=== PATIENT | male | born 1950 | race Caucasian/White ===

== ENCOUNTER 2018-09-24 06:53 | Emergency (ER) | payer MEDICARE, BC ==
[2018-09-24] MEDS ORDERED: Bacitracin Oint 1 GM U/D Packet TOP ONE (07:28)
[2018-09-24] MEDS ORDERED: Doxycycline 100 MG Cap PO ONE (07:28)
--- NOTE | 2018-09-24 07:32 | EDM.PDOC ---
ED HPI GENERAL MEDICAL PROBLEM - General Chief Complaint: Bite:Animal, Insect Stated Complaint: DEER TICK STUCK Time Seen by Provider: 09/24/18 07:15 Source of Information: Reports: Patient History Limitations: Reports: No Limitations - History of Present Illness INITIAL COMMENTS - FREE TEXT/NARRATIVE: 68-year-old male with a deer tick embedded into his left neck overnight. They were afraid to move it so he came in. No symptoms. Associated Symptoms: Reports: No Other Symptoms - Related Data Allergies Allergy/AdvReac Type Severity Reaction Status Date / Time levofloxacin Allergy Swelling Verified 09/24/18 07:08 Home Meds: Home Meds NK [No Known Home Meds] 09/24/18 [History] Past Medical History HEENT History: Reports: Impaired Vision Musculoskeletal History: Reports: Fracture - Infectious Disease History Infectious Disease History: Reports: Chicken Pox, Measles, Mumps, Shingles - Past Surgical History GI Surgical History: Reports: Appendectomy Social & Family History - Tobacco Use Smoking Status *Q: Never Smoker - Caffeine Use Caffeine Use: Reports: Coffee - Recreational Drug Use Recreational Drug Use: No ED ROS GENERAL - Review of Systems Review Of Systems: See Below Constitutional: Reports: No Symptoms Respiratory: Reports: No Symptoms GI/Abdominal: Reports: No Symptoms Neurological: Denies: Headache ED EXAM, ANIMAL BITE - Physical Exam Exam: See Below Exam Limited By: No Limitations General Appearance: Alert, No Apparent Distress Neck: Other (A very small black tick is embedded in the left anterior neck, no inflammatory reaction) Respiratory/Chest: No Respiratory Distress Course - Vital Signs Last Recorded V/S: Last Vital Signs Temp 97.5 F 09/24/18 07:14 Pulse 65 09/24/18 07:14 Resp 18 09/24/18 07:14 BP 139/92 H 09/24/18 07:14 Pulse Ox 96 09/24/18 07:14 - Orders/Labs/Meds Meds: Medications Discontinued Medications Generic Name Dose Route Start Last Admin Trade Name Freq PRN Reason Stop Dose Admin Bacitracin 1 dose 09/24/18 07:28 09/24/18 07:36 Bacitracin Oint 1 Gm TOP 09/24/18 07:29 1 dose ONETIME ONE Administration Doxycycline Hyclate 200 mg 09/24/18 07:28 09/24/18 07:36 Vibramycin PO 09/24/18 07:29 200 mg ONETIME ONE Administration - Re-Assessments/Exams Free Text/Narrative Re-Assessment/Exam: 09/24/18 07:30 The tick was carefully removed with a sharp tweezers. A small amount of bacitracin was applied with a Band-Aid and the patient given 200 mg of by mouth doxycycline. He can recheck if symptoms develop later but should be fine. Departure - Departure Time of Disposition: 07:38 Disposition: Home, Self-Care 01 Condition: Good Clinical Impression: Tick bite of neck Qualifiers: Encounter type: initial encounter Qualified Code(s): S10.96XA - Insect bite of unspecified part of neck, initial encounter - Discharge Information Instructions: Tick Bite Information, Adult, [id number] Referrals: PCP,None [Primary Care Provider] - Forms: ED Department Discharge Care Plan Goals: Keep the wound clean while healing and expect a small amount of irritation. Return anytime if worsening or concerns such as fever, large area of rash or joint pains.
== END 2018-09-24 07:39 | disposition home or self-care (01) ==
LOC: JP.ED 06:53
DX: S10.96XA Insect bite of unspecified part of neck, initial encounter (principal); W57.XXXA Bitten or stung by nonvenomous insect and other nonvenomous arthropods, initial encounter; Z88.1 Allergy status to other antibiotic agents
CPT/HCPCS: 99282; A9270